=== PATIENT | female | born 1990 | race American Indian/Alaskan Native ===

== ENCOUNTER 2018-10-07 08:39 | Emergency (ER) | payer MEDICAID ==
[2018-10-07 08:47] VITALS: BP 116/79
--- NOTE | 2018-10-07 10:34 | Emergency Department Report ---
ED ENT HPI - General Chief complaint: Sore Throat Stated complaint: 20WKS /HEADACHE/SORE THROAT Time Seen by Provider: 10/07/18 10:11 Source: patient Mode of arrival: Ambulatory Limitations: No Limitations - History of Present Illness Initial comments: Patient is a 27-year-old female who is approximately 20 weeks gestation presents to ED complaining of throat pain 1 day. Patient describes pain as throbbing in nature, 5 out of 10 intensity, nonradiating, localized to his throat. Admits pain with swallowing and eating. Patient admits no appetite due to throat pain. Patient denies nausea/vomiting/abdominal pain/shortness of breath/chest pain/headache. MD complaint: sore throat - Related Data Previous Rx's Medication Instructions Recorded Last Taken Type Acetaminophen [Acetaminophen ER 650 mg PO Q8HR PRN #20 tablet.er 10/07/18 Unknown Rx TAB] Nystas/Diphen/Xyl Visc/Mylanta 15 ml MM Q6H PRN #120 ml 10/07/18 Unknown Rx [Magic Mouthwash] Allergies Allergy/AdvReac Type Severity Reaction Status Date / Time No Known Allergies Allergy Unverified 10/07/18 08:42 ED Dental HPI - General Chief complaint: Sore Throat Stated complaint: 20WKS /HEADACHE/SORE THROAT Time Seen by Provider: 10/07/18 10:11 Source: patient Mode of arrival: Ambulatory Limitations: No Limitations - Related Data Previous Rx's Medication Instructions Recorded Last Taken Type Acetaminophen [Acetaminophen ER 650 mg PO Q8HR PRN #20 tablet.er 10/07/18 Unknown Rx TAB] Nystas/Diphen/Xyl Visc/Mylanta 15 ml MM Q6H PRN #120 ml 10/07/18 Unknown Rx [Magic Mouthwash] Allergies Allergy/AdvReac Type Severity Reaction Status Date / Time No Known Allergies Allergy Unverified 10/07/18 08:42 ED Review of Systems ROS: Stated complaint: 20WKS /HEADACHE/SORE THROAT Other details as noted in HPI Comment: All other systems reviewed and negative ED Past Medical Hx - Past Medical History Previous Medical History?: No - Surgical History Past Surgical History?: No - Social History Smoking Status: Former Smoker Substance Use Type: None - Medications Home Medications: Home Medications Medication Instructions Recorded Confirmed Last Taken Type Acetaminophen [Acetaminophen ER 650 mg PO Q8HR PRN #20 tablet.er 08/24/19 Unknown Rx TAB] Nystas/Diphen/Xyl Visc/Mylanta 15 ml MM Q6H PRN #120 ml 10/07/18 Unknown Rx [Magic Mouthwash] ED Physical Exam - General Limitations: No Limitations General appearance: alert, in no apparent distress - Head Head exam: Present: atraumatic, normocephalic - Eye Eye exam: Present: normal appearance - ENT ENT exam: Present: mucous membranes moist - Expanded ENT Exam Expanded Mouth exam: Present: normal external inspection Teeth exam: Present: normal inspection Throat exam: Positive: tonsillar erythema. Negative: tonsillomegaly, tonsillar exudate, R peritonsillar mass - Neck Neck exam: Present: normal inspection, full ROM. Absent: tenderness, lymphadenopathy - Respiratory Respiratory exam: Present: normal lung sounds bilaterally. Absent: respiratory distress - Cardiovascular Cardiovascular Exam: Present: regular rate, normal rhythm. Absent: systolic murmur, diastolic murmur, rubs, gallop - GI/Abdominal GI/Abdominal exam: Present: soft, normal bowel sounds - Extremities Exam Extremities exam: Present: normal inspection - Back Exam Back exam: Present: normal inspection - Neurological Exam Neurological exam: Present: alert, oriented X3 - Psychiatric Psychiatric exam: Present: normal affect, normal mood - Skin Skin exam: Present: warm, dry, intact, normal color. Absent: rash ED Course Vital Signs 10/07/18 08:44 Temperature 99.0 F Pulse Rate 99 H Respiratory 18 Rate Blood Pressure 116/79 O2 Sat by Pulse 100 Oximetry ED Medical Decision Making - Medical Decision Making 27-year-old female presents with pharyngitis. ED course: Rapid strep tests ordered rapid strep test negative Patient received 1 dose of Tylenol, Vital signs stable patient is in no acute or respiratory distress. Discussed findings with patient and discussed with her to follow up with her [employer] as per tenderness scheduled Discussed with patient follow-up with primary care physician. Patient on no complaints of symptoms in the ED. Patient verbally states he understands and will comply to follow-up. Critical care attestation.: If time is entered above; I have spent that time in minutes in the direct care of this critically ill patient, excluding procedure time. ED Disposition Clinical Impression: Tonsillitis Disposition: DC- TO HOME OR SELFCARE Is pt being admited?: No Does the pt Need Aspirin: No Condition: Stable Instructions: Tonsillitis (ED) Additional Instructions: Make sure to follow up with the primary care physician as discussed. Take all your medications as you've been prescribed. If you have any worsening symptoms or develop new symptoms please return to ED immediately. Prescriptions: Acetaminophen [Acetaminophen ER TAB] 650 mg PO Q8HR PRN #20 tablet.er PRN Reason: Pain Nystas/Diphen/Xyl Visc/Mylanta [Magic Mouthwash] 15 ml MM Q6H PRN #120 ml PRN Reason: Sore Throat Referrals: JACKY SALAZAR MD [Primary Care Provider] - 3-5 Days Forms: Work/School Release Form(ED) Time of Disposition: 11:09
[2018-10-07] MEDS ORDERED: TYLENOL PO ONE (11:07)
== END 2018-10-07 11:24 | disposition home or self-care (01) ==
LOC: ED 08:39
DX: O26.892 Other specified pregnancy related conditions, second trimester (principal); J03.90 Acute tonsillitis, unspecified; Z87.891 Personal history of nicotine dependence; Z79.899 Other long term (current) drug therapy; Z3A.20 20 weeks gestation of pregnancy
CPT/HCPCS: 87116; 87430; 99283

== ENCOUNTER 2019-01-20 12:15 | Outpatient (CLI) | payer MEDICAID ==
[2019-01-20 13:11] VITALS: BP 99/55
--- NOTE | 2019-01-20 15:32 | Ultrasound Report ---
ULTRASOUND OBSTETRIC INDICATION / CLINICAL INFORMATION: Recent trauma directly to belly. Clinical Gestational Age (GA): 35 weeks 4 days TECHNIQUE: Transabdominal. COMPARISON: None available. FINDINGS: There is a single intrauterine . Heart Rate: 133 beats per minute. Position: cephalic. Placenta: anterior and free of the os. Amniotic Fluid Volume: normal Amniotic Fluid Index (SHANNAN) in cm (if calculated): 12.4. BPP 8/8. In the area where the patient reportedly has pain, there is a complex subcutaneous lesion with hetero geneous echotexture including multiple hypoechoic areas that measures 3.7 x 1.4 x 2.4 cm. There is no associated surrounding hyperemia or internal vascular flow on Doppler imaging. IMPRESSION: 1. Single, living intrauterine . 2. No significant sonographic abnormality of the placenta. 3. Given reported history of recent abdominal trauma, the complex subcutaneous masslike collection in the anterior abdominal wall may represent a small hematoma. Presence of visible bruising in this are a would be supportive evidence. Signer Name: Aaron Valdivia MD Signed: 01/20/2019 3:28 PM Workstation Name: [id number]
== END 2019-01-20 14:29 | disposition home or self-care (01) ==
LOC: TRG 12:15
PROVIDERS: ATTEND Obstetrics & Gynecology
DX: O47.03 False labor before 37 completed weeks of gestation, third trimester (principal); Z3A.35 35 weeks gestation of pregnancy
CPT/HCPCS: 59025; 76815; 76819